=== PATIENT | female | born 1970 | race Caucasian/White ===

== ENCOUNTER 2016-05-31 18:33 | Emergency (ER) | payer MEDICAID ==
[~2016-05-31] VITALS: Ht 162.6 cm; Wt 71.0 kg
[~2016-05-31 18:33] MED LIST: ADVA250A INH; ALBU0.086 NEB; ALBU8I INH; FLOV220A INH; IBUP800T23 PO; LEVO.15 PO; MONT10TA2 PO; ROBA750T3 PO
[2016-05-31 18:51] VITALS: BP 130/90; PULSE 106; RESP 18; TEMP 99.5; O2SAT 95
[2016-05-31 19:14] VITALS: BP 130/90; PULSE 106; RESP 18; TEMP 99.5; O2SAT 95
--- NOTE | 2016-05-31 19:17 | PD ---
HPI Chief Complaint: lower abdominal pain Time Seen by Provider: 19:10 Travel History International Travel<30 days: No Contact w/Intl Traveler<30days: No Traveled to known affect area: No History of Present Illness HPI This 45-year-old female is complaining of lower abdominal pain. She says the pain started this morning and has been fairly persistent. No vomiting or diarrhea. She has a history of partial hysterectomy and has had her bladder tucked. She has not had any vaginal bleeding or discharge. She is currently on amoxicillin for dental problems [facility] Past Medical History Arthritis: Yes Asthma: Yes Autoimmune Disease: No Blood Disorders: No Bipolar Disorder: Yes (DENIES) Anxiety: Yes Depression: Yes Cancer: No Cardiovascular Problems: No COPD: No Diabetes: No Diminished Hearing: No Endocrine: No GERD: Yes Genitourinary: No Hepatitis: No Hiatal Hernia: No Immune Disorder: No Musculoskeletal: No Neurologic: No Psychiatric: Yes (BIPOLAR) Respiratory: Yes (ASTHMA) Immunizations Current: Yes Pneumonia: Yes Sleep Apnea: No Thyroid Disease: Yes Ulcer: No PNEUMOCCOCAL Vaccine (Year): 2 : 3 Para: 3 Past Surgical History Abdominal Surgery: No AICD: No Cardiac Surgery: No Ear Surgery: No Endocrine Surgery: No Eye Surgery: No Genitourinary Surgery: Yes (BLADDER LIFT) Gynecologic Surgery: No Hysterectomy: Yes (PARTIAL) Oral Surgery: No Pacemaker: No Thoracic Surgery: No Social History Alcohol Use: No (QUIT 2012) Tobacco Use: Yes (02/21) Substance Use: No (QUIT: OCT 2012) Allergies-Medications (Allergen,Severity, Reaction): Coded Allergies: [place] Nut (Verified Allergy, Severe, HIVES, THROAT SWELLS - ALL NUTS, 06/25) Nut Tree (Verified Allergy, Severe, HIVES - ALL NUTS, 06/26/15) White Fish (Verified Adverse Reaction, Severe, NAUSEA, 06/26/15) Reported Meds & Prescriptions Reported Meds & Active Scripts Active Robaxin-750 (Methocarbamol) 750 Mg Tab 750 Mg PO TID Ibuprofen 800 Mg Tab 800 Mg PO Q8HR Flovent Hfa (Fluticasone Propionate) 220 Mcg Aer 220 Mcg INH BID 30 Days Ventolin Hfa (Albuterol Sulfate) 8 Gm Aero 2 Puff INH Q4 PRN * SHAKE WELL BEFORE USE * Proventil Ud 0.083% (2.5 Mg/3 Ml) (Albuterol Sulfate) 2.5 Mg/3 Ml Inha 2.5 Mg NEB Q4HR NEB PRN Reported Singulair (Montelukast Sodium) 10 Mg Tab 10 Mg PO HS Advair Diskus 250/50 (Salmeterol Xinafoate/Fluticasone) 250 Mcg/50 Mcg Inhp 1 Puff INH BID Synthroid (Levothyroxine Sodium) 150 Mcg Tab 200 Mcg PO DAILY Review of Systems General / Constitutional: No: Fever, Chills Eyes: No: Diploplia, Blurred Vision HENT: No: Headaches, Vertigo Cardiovascular: No: Chest Pain or Discomfort, Palpitations Respiratory: No: Cough, Shortness of Breath Gastrointestinal: No: Nausea, Vomiting, Diarrhea Genitourinary: Positive: Pelvic Pain, No: Urgency, Frequency Musculoskeletal: No: Myalgias, Arthralgias Skin: No Rash, No Itching Hematologic/Lymphatic: No: Easy Bruising Physical Exam Narrative GENERAL: Well-developed female SKIN: Focused skin assessment warm/dry. HEAD: Atraumatic. Normocephalic. EYES: Pupils equal and round. No scleral icterus. No injection or drainage. ENT: No nasal bleeding or discharge. Mucous membranes pink and moist. NECK: Trachea midline. No JVD. CARDIOVASCULAR: Regular rate and rhythm. No murmur appreciated. RESPIRATORY: No accessory muscle use. Clear to auscultation. Breath sounds equal bilaterally. GASTROINTESTINAL: Abdomen soft, non-tender, nondistended. Hepatic and splenic margins not palpable. Lower abdominal tenderness without guarding or rigidity MUSCULOSKELETAL: No obvious deformities. No clubbing. No cyanosis. No edema. NEUROLOGICAL: Awake and alert. No obvious cranial nerve deficits. Motor grossly within normal limits. Normal speech. PSYCHIATRIC: Appropriate mood and affect; insight and judgment normal. Data Data Last Documented VS Vital Signs Date Time Temp Pulse Resp B/P Pulse Ox O2 Delivery O2 Flow Rate FiO2 05/31/16 19:18 18 05/31/16 19:18 102 117/89 96 Room Air 05/31/16 19:14 99.5 Orders Complete Blood Count With Diff (05/31/16 19:16) Comprehensive Metabolic Panel (05/31/16 19:16) Urinalysis - C+S If Indicated (05/31/16 19:16) Ct Abd/Pel W Iv Contrast(Rout) (05/31/16 20:19) Iohexol 350 Inj (Omnipaque 350 Inj) (05/31/16 20:45) Labs Laboratory Tests Test 05/31/16 19:45 White Blood Count 12.8 TH/MM3 Red Blood Count 4.53 MIL/MM3 Hemoglobin 12.7 GM/DL Hematocrit 38.1 % Mean Corpuscular Volume 84.1 FL Mean Corpuscular Hemoglobin 28.0 PG Mean Corpuscular Hemoglobin 33.3 % Concent Red Cell Distribution Width 12.9 % Platelet Count 237 TH/MM3 Mean Platelet Volume 9.1 FL Neutrophils (%) (Auto) 59.8 % Lymphocytes (%) (Auto) 28.6 % Monocytes (%) (Auto) 8.7 % Eosinophils (%) (Auto) 2.3 % Basophils (%) (Auto) 0.6 % Neutrophils # (Auto) 7.7 TH/MM3 Lymphocytes # (Auto) 3.6 TH/MM3 Monocytes # (Auto) 1.1 TH/MM3 Eosinophils # (Auto) 0.3 TH/MM3 Basophils # (Auto) 0.1 TH/MM3 CBC Comment DIFF FINAL Differential Comment Urine Color YELLOW Urine Turbidity CLEAR Urine pH 6.0 Urine Specific Combs 1.014 Urine Protein NEG mg/dL Urine Glucose (UA) NEG mg/dL Urine Ketones NEG mg/dL Urine Occult Blood NEG Urine Nitrite NEG Urine Bilirubin NEG Urine Leukocyte Esterase NEG Urine RBC 0-3 /hpf Urine Squamous Epithelial 0-5 /hpf Cells Urine Mucus OCC /lpf Microscopic Urinalysis Comment CULT NOT INDICATED Sodium Level 140 MEQ/L Potassium Level 3.5 MEQ/L Chloride Level 105 MEQ/L Carbon Dioxide Level 26.9 MEQ/L Anion Gap 8 MEQ/L Blood Urea Nitrogen 10 MG/DL Creatinine 0.49 MG/DL Estimat Glomerular Filtration 137 ML/MIN Rate Random Glucose 90 MG/DL Calcium Level 9.3 MG/DL Total Bilirubin 0.3 MG/DL Aspartate Amino Transf 11 U/L (AST/SGOT) Alanine Aminotransferase 25 U/L (ALT/SGPT) Alkaline Phosphatase 81 U/L Total Protein 7.1 GM/DL Albumin 3.4 GM/DL [facility] Medical Decision Making Medical Screen Exam Complete: Yes Emergency Medical Condition: Yes Medical Record Reviewed: Yes Differential Diagnosis Differential includes nonspecific abdominal pain, UTI, diverticulitis Narrative Course Urine is negative for infection. Her white count is 12,000. A CT scan has been ordered to assess for diverticulitis. CT scan is read as showing acute diverticulitis involving the sigmoid colon. Patient is here with her son and cannot be admitted at this time. She will be put on cipro and Flagyl. Diagnosis Primary Impression: Acute diverticulitis Scripts Hydrocodone-Acetaminophen (Lortab)10-325 Mg Tab1 Tab PO Q4H PRN (PAIN) #20 TAB Ref 0 Prov:Shane Benítez MD 05/31/16 Metronidazole (Flagyl)500 Mg [id number] Mg PO TID #21 TAB Ref 0 Prov:Shane Benítez MD 05/31/16 Ciprofloxacin (Cipro)500 Mg [id number] Mg PO BID #14 TAB Ref 0 Prov:Shane Benítez MD 05/31/16 Disposition: 01 DISCHARGE HOME Condition: Stable Shane Benítez MD May 31, 2016 19:17
[2016-05-31 19:18] VITALS: BP 117/89; PULSE 102; RESP 18; O2SAT 96
[2016-05-31 19:56] LABS: BLOOD, URINE NEG (NEG); GLUCOSE,URINE NEG (NEG); KETONE, URINE NEG (NEG); NITRITE,URINE NEG (NEG)
[2016-05-31 19:58] LABS: AUTOMATED NEUTROPHIL # 7.7 TH/MM3 (1.8-7.7); BASOPHIL # 0.1 TH/MM3 (0-0.2); BASOPHIL % 0.6 % (0.0-2.0); EOSINOPHIL # 0.3 TH/MM3 (0-0.4); EOSINOPHIL % 2.3 % (0.0-4.0); HEMATOCRIT 38.1 % (35.0-46.0); LYMPH % 28.6 % (9.0-44.0); LYMPHOCYTE # 3.6 TH/MM3 (1.0-4.8); MEAN CELL VOLUME 84.1 FL (80.0-100.0); MEAN CORPUSCULAR HGB CONC 33.3 % (32.0-36.0); MONO % 8.7 % (0.0-8.0); NEUT % 59.8 % (16.0-70.0); PLATELET COUNT 237 TH/MM3 (150-450); RED BLOOD COUNT 4.53 MIL/MM3 (4.00-5.30); RED CELL DISTRIBUTION WIDTH 12.9 % (11.6-17.2); WHITE BLOOD COUNT 12.8 TH/MM3 (4.0-11.0)
[2016-05-31 19:59] LABS: HEMO FLAGS DIFF FINAL
[2016-05-31 20:06] LABS: CHLORIDE 105 MEQ/L (98-107); POTASSIUM 3.5 MEQ/L (3.5-5.1); SODIUM (NA) 140 MEQ/L (136-145)
[2016-05-31 20:11] LABS: ANION GAP 8 MEQ/L (5-15); BICARBONATE 26.9 MEQ/L (21.0-32.0)
[2016-05-31 20:12] LABS: BLOOD UREA NITROGEN 10 MG/DL (7-18)
[2016-05-31 20:14] LABS: ALT (GPT) 25 U/L (10-53); URINE COLOR YELLOW (YELLW/STRAW)
[2016-05-31 20:15] LABS: AST (GOT) 11 U/L (15-37); GLOMERULAR FILTRATION RATE 137 ML/MIN (>89); MUCUS URINE OCC /lpf (OCC); SQUAMOUS EPITHELIAL CELL URINE 0-5 /hpf (0-5)
[2016-05-31 20:16] LABS: COMMENT (UR) CULT NOT INDICATED; CULTURE IF INDICATED CULT NOT INDICATED; RBC, URINE 0-3 /hpf (0-3); TOTAL BILIRUBIN ADULT 0.3 MG/DL (0.2-1.0)
[2016-05-31 20:17] LABS: ALKALINE PHOSPHATASE 81 U/L (45-117)
[2016-05-31] MEDS ORDERED: IOHEXOL 350 MG/ML 10 ML VIAL (for RAD DIAG) IV ONE (20:45)
--- NOTE | 2016-05-31 20:56 | RADHPO ---
EXAM DATE/TIME: 05/31/2016 20:28 [place] COMPARISON: No previous studies available for comparison. INDICATIONS : Bilateral lower abdominal pain. Evaluate for diverticulitis. IV CONTRAST: 100 cc Omnipaque 350 (iohexol) IV ORAL CONTRAST: No oral contrast ingested. RADIATION DOSE: 11.67 CTDIvol (mGy) MEDICAL HISTORY : None SURGICAL HISTORY : Hysterectomy. Bladder lift. ENCOUNTER: Initial ACUITY: 1 day PAIN SCALE: 10/10 LOCATION: Bilateral lower quadrant TECHNIQUE: Volumetric scanning of the abdomen and pelvis was performed. Using automated exposure control and ad justment of the mA and/or kV according to patient size, radiation dose was kept as low as reasonably achievable to obtain optimal diagnostic quality images. FINDINGS: LOWER LUNGS: The visualized lower lungs are clear. LIVER: Homogeneous density without lesion. There is no dilation of the biliary tree. No calcified gallston es. There is mild steatosis of the liver. SPLEEN: Normal size without lesion. PANCREAS: Within normal limits. KIDNEYS: Normal in size and shape. There is no mass, stone or hydronephrosis. ADRENAL GLANDS: Within normal limits. VASCULAR: There is no aortic aneurysm. BOWEL/MESENTERY: There is mild wall thickening and inflammatory change involving the sigmoid colon with multiple diver ticuli. There is no free air or fluid. ABDOMINAL WALL: Within normal limits. RETROPERITONEUM: There is no lymphadenopathy. BLADDER: No wall thickening or mass. REPRODUCTIVE: Within normal limits. INGUINAL: There is no lymphadenopathy or hernia. MUSCULOSKELETAL: Within normal limits for patient age. CONCLUSION: 1. Ings characteristic of mild acute diverticulitis involving the sigmoid colon. There is no free air or fluid. 2. Mild steatosis of the liver. Mack Robledo MD on May 31, 2016 at 20:53 Board Certified Radiologist. This report was verified electronically.
[2016-05-31] MEDS ORDERED: CIPR-9 PO (21:07)
[2016-05-31] MEDS ORDERED: METR-1 PO (21:07)
[2016-05-31] MEDS ORDERED: HYDR-3535 PO (21:07)
[2016-05-31 21:34] VITALS: BP 132/78
== END 2016-05-31 21:39 | disposition home or self-care (01) ==
LOC: PHED 18:33
DX: K57.32 Diverticulitis of large intestine without perforation or abscess without bleeding (principal); E07.9 Disorder of thyroid, unspecified; F17.200 Nicotine dependence, unspecified, uncomplicated; Z87.39 Personal history of other diseases of the musculoskeletal system and connective tissue; Z87.09 Personal history of other diseases of the respiratory system; Z86.59 Personal history of other mental and behavioral disorders; Z87.19 Personal history of other diseases of the digestive system
CPT/HCPCS: 74177; 80053; 81001; 85025; 99284; Q9967

== ENCOUNTER 2017-03-01 08:32 | Emergency (ER) | payer MEDICAID, OTHER ==
[~2017-03-01] VITALS: Ht 154.9 cm; Wt 73.4 kg
[~2017-03-01 08:32] MED LIST changes: +CIPR-9 PO; +HYDR-3535 PO; +METR-1 PO
[2017-03-01 08:41] VITALS: BP 131/79; PULSE 85; RESP 16; TEMP 97.9; O2SAT 97
[2017-03-01] MEDS ORDERED: CIPR-9 PO (08:58)
[2017-03-01] MEDS ORDERED: METR-1 PO (08:58)
--- NOTE | 2017-03-01 09:02 | PD ---
HPI Chief Complaint: Abdominal Pain Time Seen by Provider: 08:51 Travel History International Travel<30 days: No Contact w/Intl Traveler<30days: No Traveled to known affect area: No History of Present Illness HPI The patient was seen and examined in the presence of the nurse. This patient complains of left lower quadrant abdominal pain of some bloating. She's had diverticulitis multiple times and this feels the same. She is not having active vomiting or diarrhea or rectal bleeding. She's had colonoscopy several months ago. Symptoms are of mild to moderate severity. She requests to see if the antibiotics to get better and doesn't want a lot of testing because she says she knows what's going on. PFSH Past Medical History Arthritis: Yes Asthma: Yes Autoimmune Disease: No Blood Disorders: No Bipolar Disorder: Yes (DENIES) Anxiety: Yes Depression: Yes Cancer: No Cardiovascular Problems: No COPD: No Diabetes: No Diminished Hearing: No Endocrine: No GERD: Yes Genitourinary: No Hepatitis: No Hiatal Hernia: No Immune Disorder: No Musculoskeletal: No Neurologic: No Psychiatric: Yes (BIPOLAR) Respiratory: Yes (ASTHMA) Immunizations Current: Yes Pneumonia: Yes Sleep Apnea: No Thyroid Disease: Yes Ulcer: No PNEUMOCCOCAL Vaccine (Year): 2 : 3 Para: 3 Past Surgical History Abdominal Surgery: No AICD: No Cardiac Surgery: No Ear Surgery: No Endocrine Surgery: No Eye Surgery: No Genitourinary Surgery: Yes (BLADDER LIFT) Gynecologic Surgery: No Hysterectomy: Yes (2012) Oral Surgery: No Pacemaker: No Thoracic Surgery: No Other Surgery: Yes (Dental 05/2016) Social History Alcohol Use: No (QUIT 2012) Tobacco Use: Yes (02/21 PPD) Substance Use: No (QUIT: OCT 2012) Allergies-Medications (Allergen,Severity, Reaction): Coded Allergies: bertholletia excelsa (Unverified Allergy, Severe, HIVES, THROAT SWELLS - ALL NUTS, 10/04/16) tree nut (Unverified Allergy, Severe, HIVES - ALL NUTS, 10/04/16) Fish Containing Products (Unverified Adverse Reaction, Severe, NAUSEA, ) Reported Meds & Prescriptions Reported Meds & Active Scripts Active Flagyl (Metronidazole) 500 Mg Tab 500 Mg PO TID Cipro (Ciprofloxacin HCl) 500 Mg Tab 500 Mg PO BID Lortab (Hydrocodone-Acetaminophen) 10-325 Mg Tab 1 Tab PO Q4H PRN Robaxin-750 (Methocarbamol) 750 Mg Tab 750 Mg PO TID Ibuprofen 800 Mg Tab 800 Mg PO Q8HR Flovent Hfa (Fluticasone Propionate) 220 Mcg Aer 220 Mcg INH BID 30 Days Ventolin Hfa (Albuterol Sulfate) 8 Gm Aero 2 Puff INH Q4 PRN * SHAKE WELL BEFORE USE * Proventil Ud 0.083% (2.5 Mg/3 Ml) (Albuterol Sulfate) 2.5 Mg/3 Ml Inha 2.5 Mg NEB Q4HR NEB PRN Reported Singulair (Montelukast Sodium) 10 Mg Tab 10 Mg PO HS Advair Diskus 250/50 (Salmeterol Xinafoate/Fluticasone) 250 Mcg/50 Mcg Inhp 1 Puff INH BID Synthroid (Levothyroxine Sodium) 150 Mcg Tab 200 Mcg PO DAILY Review of Systems General / Constitutional: No: Fever HENT: No: Headaches Cardiovascular: No: Chest Pain or Discomfort Physical Exam Narrative GASTROINTESTINAL: Abdomen soft, mild left lower quadrant tenderness without rebound or guarding, nondistended. Positive bowel sounds. No hepato- splenomegaly, or palpable masses. No guarding. SKIN: Focused skin assessment reveals no rash or ulcers. Skin is warm and dry. Palpation shows no induration or nodules. Psych: Normal mood and affect. Normal insight and judgment. Data Data Last Documented VS Vital Signs Date Time Temp Pulse Resp B/P (MAP) Pulse Ox O2 Delivery O2 Flow Rate FiO2 03/01/17 08:41 97.9 85 16 131/79 (96) 97 Room Air Orders Orders Ed Urine Pregnancytest Poc (03/01/17 08:47) MDM Medical Decision Making Medical Screen Exam Complete: Yes Emergency Medical Condition: Yes Medical Record Reviewed: Yes Differential Diagnosis Diverticulitis, colitis, ileus Narrative Course I have reviewed the patient's electronic medical record. Patient's had diverticulitis diagnosed here before. She reports having a hysterectomy therefore did not order test I prescribed her Cipro and Flagyl. She's had these before and got better and tolerated them well Diagnosis Primary Impression: Acute diverticulitis Additional Instructions: The patient was advised to follow up with their physician and return if they worsen. Med/Other Pt SpecificInfo: Prescription(s) given Scripts Metronidazole (Flagyl) 500 Mg Tab 500 MG PO TID for Infection, #21 TAB 0 Refills Prov: Yosef Benitez MD 03/01/17 Ciprofloxacin (Cipro) 500 Mg Tab 500 MG PO BID for Infection, #14 TAB 0 Refills Prov: Yosef Benitez MD 03/01/17 Disposition: 01 DISCHARGE HOME Condition: Stable Yosef Benitez MD Mar 01, 2017 09:02
[2017-03-01] MEDS ORDERED: VENTAER INH (09:06)
[2017-03-01] MEDS ORDERED: HYDR-3583 PO (09:06)
[2017-03-01] MEDS ORDERED: MONT10TA2 PO (09:06)
[2017-03-01] MEDS ORDERED: ALBU0.08 NEB (09:06)
[2017-03-01] MEDS ORDERED: LEVO200T4 PO (09:06)
== END 2017-03-01 09:12 | disposition home or self-care (01) ==
LOC: PHED 08:32
DX: K57.92 Diverticulitis of intestine, part unspecified, without perforation or abscess without bleeding (principal); J45.909 Unspecified asthma, uncomplicated; F41.9 Anxiety disorder, unspecified; F32.9 Major depressive disorder, single episode, unspecified; K21.9 Gastro-esophageal reflux disease without esophagitis; M19.90 Unspecified osteoarthritis, unspecified site; F17.210 Nicotine dependence, cigarettes, uncomplicated; Z79.899 Other long term (current) drug therapy
CPT/HCPCS: 99284

== ENCOUNTER 2017-03-13 08:34 | Emergency (ER) | payer OTHER ==
[~2017-03-13] VITALS: Ht 154.9 cm; Wt 72.0 kg
[~2017-03-13 08:34] MED LIST changes: -ADVA250A INH; +ALBU0.08 NEB; -ALBU0.086 NEB; -ALBU8I INH; -FLOV220A INH; -HYDR-3535 PO; +HYDR-3583 PO; -IBUP800T23 PO; -LEVO.15 PO; +LEVO200T4 PO; -ROBA750T3 PO; +VENTAER INH
[2017-03-13 08:41] VITALS: BP 115/76; PULSE 80; RESP 16; TEMP 97.7; O2SAT 98
[2017-03-13] MEDS ORDERED: IBUP1TAB7 PO (09:22)
--- NOTE | 2017-03-13 09:22 | PD ---
HPI Chief Complaint: Pain: Acute or Chronic Time Seen by Provider: 09:06 Travel History International Travel<30 days: No Contact w/Intl Traveler<30days: No Traveled to known affect area: No History of Present Illness HPI This is a 46-year-old female here with left foot pain times one day. She denies injury or trauma. Pain is localized to the plantar aspect near the heel. Denies fever or chills. No swelling of the foot. No change in sensation of the foot. Weightbearing produces pain which is slightly relieved with rest. Symptom severity mild. PFSH Past Medical History Hx Anticoagulant Therapy: No Arthritis: Yes Asthma: Yes Autoimmune Disease: No Blood Disorders: No Bipolar Disorder: Yes (DENIES) Anxiety: Yes Depression: Yes Cancer: No Cardiovascular Problems: No COPD: No Diabetes: No Diminished Hearing: No Endocrine: No Gastrointestinal Disorders: No GERD: Yes Genitourinary: No Hepatitis: No Hiatal Hernia: No Immune Disorder: No Musculoskeletal: No Neurologic: No Psychiatric: Yes (BIPOLAR) Reproductive: No Respiratory: Yes (ASTHMA) Immunizations Current: Yes Pneumonia: Yes Sleep Apnea: No Thyroid Disease: Yes Ulcer: No PNEUMOCCOCAL Vaccine (Year): 2 ?: Not : 3 Para: 3 Past Surgical History Abdominal Surgery: No AICD: No Cardiac Surgery: No Ear Surgery: No Endocrine Surgery: No Eye Surgery: No Genitourinary Surgery: Yes (BLADDER LIFT) Gynecologic Surgery: No Hysterectomy: Yes (PARTIAL) Neurologic Surgery: No Oral Surgery: No Pacemaker: No Thoracic Surgery: No Other Surgery: Yes (Dental 05/2016) Social History Alcohol Use: No (QUIT 2012) Tobacco Use: Yes (02/23 PPD) Substance Use: No (QUIT: OCT 2012) Allergies-Medications (Allergen,Severity, Reaction): Coded Allergies: bertholletia excelsa (Unverified Allergy, Severe, HIVES, THROAT SWELLS - ALL NUTS, 03/13/17) tree nut (Unverified Allergy, Severe, HIVES - ALL NUTS, 03/13/17) Fish Containing Products (Unverified Adverse Reaction, Severe, NAUSEA, ) Reported Meds & Prescriptions Reported Meds & Active Scripts Active Ibuprofen 800 Mg Tab 800 Mg PO Q6HR PRN Flagyl (Metronidazole) 500 Mg Tab 500 Mg PO TID Cipro (Ciprofloxacin HCl) 500 Mg Tab 500 Mg PO BID Reported Hydrocodone-Acetaminophen 10-325 mg Tab 1 Tab PO Q6H PRN Levothyroxine (Levothyroxine Sodium) 200 Mcg Tab 200 Mcg PO DAILY Albuterol Neb (Albuterol Sulfate) 2.5 Mg/3 Ml Neb 2.5 Mg NEB Q4HR NEB While awake Singulair (Montelukast Sodium) 10 Mg Tab 10 Mg PO HS Ventolin Hfa 18 GM Inh (Albuterol Sulfate) 90 Mcg/Act Aer 2 Puff INH Q4-6H PRN Review of Systems Except as stated in HPI: all other systems reviewed are Neg General / Constitutional: No: Fever Physical Exam Narrative GENERAL: Alert and well-appearing female. SKIN: Warm and dry. No open wounds or lesions. HEAD: Normocephalic. EYES: No injection or drainage. NECK: Supple, trachea midline. MUSCULOSKELETAL: No cyanosis, or edema. Left foot: No swelling. No erythema. Bones are nontender. Patient has pain in the soft tissue of the heel. No evidence of puncture wound or infection. Normal sensation. 2+ dorsal pedis pulses. Brisk cap refill. Data Data Last Documented VS Vital Signs Date Time Temp Pulse Resp B/P (MAP) Pulse Ox O2 Delivery O2 Flow Rate FiO2 03/13/17 08:41 97.7 80 16 115/76 (89) 98 MDM Medical Decision Making Medical Screen Exam Complete: Yes Emergency Medical Condition: Yes Differential Diagnosis Plantar fasciitis, gallops, midfoot sprain Narrative Course 46-year-old female here with nontraumatic foot pain. This is consistent with plantar fasciitis hands. Patient will be prescribed NSAIDs. Diagnosis Primary Impression: Foot pain Qualified Codes: M79.672 - Pain in left foot Referrals: Primary Care Physician Additional Instructions: Ibuprofen 800 mg every 6 hours as needed for pain. Elevate the foot. Scripts Ibuprofen (Ibuprofen) 800 Mg Tab 800 MG PO Q6HR Y for PAIN, #40 TAB 0 Refills Prov: Kelsi Anand 03/13/17 Disposition: 01 DISCHARGE HOME Condition: Stable Kelsi Anand Mar 13, 2017 09:22
== END 2017-03-13 09:32 | disposition home or self-care (01) ==
LOC: PHEFT 08:34
DX: M79.672 Pain in left foot (principal); J45.909 Unspecified asthma, uncomplicated; Z72.0 Tobacco use
CPT/HCPCS: 99283

== ENCOUNTER 2017-04-07 11:24 | Emergency (ER) | payer MEDICAID, OTHER ==
[~2017-04-07] VITALS: Ht 154.9 cm; Wt 72.2 kg
[~2017-04-07 11:24] MED LIST changes: +IBUP1TAB7 PO
[2017-04-07 11:38] VITALS: BP 104/72; PULSE 79; RESP 16; TEMP 97.7; O2SAT 98
[2017-04-07] MEDS ORDERED: METR-1 PO (12:00)
[2017-04-07] MEDS ORDERED: CIPR-9 PO (12:00)
--- NOTE | 2017-04-07 12:00 | PD ---
HPI Chief Complaint: GI Complaint Time Seen by Provider: 11:47 Travel History International Travel<30 days: No Contact w/Intl Traveler<30days: No Traveled to known affect area: No History of Present Illness HPI 46-year-old female complains of lower abdominal pain since this morning. She has a history of diverticulitis and believes it might be the same. Diarrhea is also reported. Diarrhea is nonbloody. She reports strict compliance with diverticulitis/low residue diet. She reports weight loss intentionally. No fever. No vomiting. Onset gradual. Timing constant. Severity mild-to- moderate. She reports typically antibiotics are helpful. Lortab which normally works is less effective. PFSH Past Medical History Hx Anticoagulant Therapy: No Arthritis: Yes Asthma: Yes Autoimmune Disease: No Blood Disorders: No Bipolar Disorder: Yes (DENIES) Anxiety: Yes Depression: Yes Cancer: No Cardiovascular Problems: No COPD: No Diabetes: No Diminished Hearing: No Endocrine: No Gastrointestinal Disorders: No GERD: Yes Genitourinary: No Hepatitis: No Hiatal Hernia: No Immune Disorder: No Musculoskeletal: No Neurologic: No Psychiatric: Yes (BIPOLAR) Reproductive: No Respiratory: Yes (ASTHMA) Immunizations Current: Yes Pneumonia: Yes Sleep Apnea: No Thyroid Disease: Yes Ulcer: No PNEUMOCCOCAL Vaccine (Year): 2 ?: Not : 3 Para: 3 Past Surgical History Abdominal Surgery: No AICD: No Cardiac Surgery: No Ear Surgery: No Endocrine Surgery: No Eye Surgery: No Genitourinary Surgery: Yes (BLADDER LIFT) Gynecologic Surgery: No Hysterectomy: Yes (PARTIAL) Neurologic Surgery: No Oral Surgery: No Pacemaker: No Thoracic Surgery: No Other Surgery: Yes (Dental 05/2016) Social History Alcohol Use: No (QUIT 2012) Tobacco Use: Yes (02/23) Substance Use: No (QUIT: OCT 2012) Allergies-Medications (Allergen,Severity, Reaction): Coded Allergies: bertholletia excelsa (Unverified Allergy, Severe, HIVES, THROAT SWELLS - ALL NUTS, 04/07/17) tree nut (Unverified Allergy, Severe, HIVES - ALL NUTS, 04/07/17) Fish Containing Products (Unverified Adverse Reaction, Severe, NAUSEA, ) Reported Meds & Prescriptions Reported Meds & Active Scripts Active Ibuprofen 800 Mg Tab 800 Mg PO Q6HR PRN Flagyl (Metronidazole) 500 Mg Tab 500 Mg PO TID Cipro (Ciprofloxacin HCl) 500 Mg Tab 500 Mg PO BID Reported Hydrocodone-Acetaminophen 10-325 mg Tab 1 Tab PO Q6H PRN Levothyroxine (Levothyroxine Sodium) 200 Mcg Tab 200 Mcg PO DAILY Albuterol Neb (Albuterol Sulfate) 2.5 Mg/3 Ml Neb 2.5 Mg NEB Q4HR NEB While awake Singulair (Montelukast Sodium) 10 Mg Tab 10 Mg PO HS Ventolin Hfa 18 GM Inh (Albuterol Sulfate) 90 Mcg/Act Aer 2 Puff INH Q4-6H PRN Review of Systems Except as stated in HPI: all other systems reviewed are Neg Physical Exam Narrative GENERAL: 46-year-old female pleasant well-nourished well-developed Vital Signs Date Time Temp Pulse Resp B/P (MAP) Pulse Ox O2 Delivery O2 Flow Rate FiO2 04/07/17 11:38 97.7 79 16 104/72 (83) 98 SKIN: Warm and dry. HEAD: Atraumatic. Normocephalic. EYES: Pupils equal and round. No scleral icterus. No injection or drainage. ENT: No nasal bleeding or discharge. Mucous membranes pink and moist. NECK: Trachea midline. No JVD. CARDIOVASCULAR: Regular rate and rhythm. RESPIRATORY: No accessory muscle use. Clear to auscultation. Breath sounds equal bilaterally. GASTROINTESTINAL: Soft. Minimal tenderness to deep palpation in suprapubic abdomen and left lower quadrant. MUSCULOSKELETAL: Extremities without clubbing, cyanosis, or edema. No obvious deformities. NEUROLOGICAL: Awake and alert. No obvious cranial nerve deficits. Motor grossly within normal limits. Five out of 5 muscle strength in the arms and legs. Normal speech. PSYCHIATRIC: Appropriate mood and affect; insight and judgment normal. Data Data Last Documented VS Vital Signs Date Time Temp Pulse Resp B/P (MAP) Pulse Ox O2 Delivery O2 Flow Rate FiO2 04/07/17 11:38 97.7 79 16 104/72 (83) 98 MDM Medical Decision Making Medical Screen Exam Complete: Yes Emergency Medical Condition: Yes Medical Record Reviewed: Yes Differential Diagnosis Constipation, Gastritis, Acute Cholecystitis, Biliary Colic, Pancreatitis, VALVERDE , Hepatitis, Bowel Obstruction, Cystitis, Mesenteric Ischemia, AAA, Appendicitis , Renal Stone/Hydronephrosis, GERD, perforated viscous Narrative Course The abdomen is sufficiently benign to defer workup and imaging. Work note given the patient's request. Antibiotics are considered reasonable. Diagnosis Primary Impression: Acute diverticulitis Referrals: Primary Care Physician 2 days Med/Other Pt SpecificInfo: Prescription(s) given Scripts Metronidazole (Flagyl) 500 Mg Tab 500 MG PO TID for Infection for 14 Days, TAB 0 Refills Prov: Jacob Nelson MD 04/07/17 Ciprofloxacin (Cipro) 500 Mg Tab 500 MG PO BID for Infection for 14 Days, #28 TAB 0 Refills Prov: Jacob Nelson MD 04/07/17 Disposition: 01 DISCHARGE HOME Condition: Fair Jacob Nelson MD Apr 07, 2017 12:00
== END 2017-04-07 12:22 | disposition home or self-care (01) ==
LOC: PHED 11:24
DX: K57.92 Diverticulitis of intestine, part unspecified, without perforation or abscess without bleeding (principal); E07.9 Disorder of thyroid, unspecified; J45.909 Unspecified asthma, uncomplicated; F17.200 Nicotine dependence, unspecified, uncomplicated
CPT/HCPCS: 99283

== ENCOUNTER 2017-05-21 13:36 | Emergency (ER) | payer MEDICAID ==
[~2017-05-21] VITALS: Ht 154.9 cm; Wt 72.5 kg
[2017-05-21 13:41] VITALS: BP 132/71; PULSE 80; RESP 16; TEMP 97.7; O2SAT 97
[2017-05-21] MEDS ORDERED: SODIUM CHLORIDE 0.9% FLUSH 10 ML FLUSH IV FLUSH PRN (14:00)
--- NOTE | 2017-05-21 14:14 | PD ---
HPI Chief Complaint: Abdominal Pain Time Seen by Provider: 13:46 Travel History International Travel<30 days: No Contact w/Intl Traveler<30days: No Traveled to known affect area: No History of Present Illness HPI Patient is a 46-year-old female who presents the emergency room with complaints of lower abdominal pain. Patient reports that for the past 2 days, she has had increased lower abdominal pain which she rates as mild to moderate, reports the pain is similar to when she was diagnosed with acute diverticulitis in the past. Patient reports that whenever she has these symptoms, she is given a prescription for antibiotics which seem to resolve her symptoms. 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 Patient denies any fever chills, denies any nausea or vomiting, denies any constipation or diarrhea. Patient denies any vaginal discharge or bleeding. Patient with no other complaints at this time. PFSH Past Medical History Hx Anticoagulant Therapy: No Arthritis: Yes Asthma: Yes Autoimmune Disease: No Blood Disorders: No Bipolar Disorder: Yes (DENIES) Anxiety: Yes Depression: Yes Cancer: No Cardiovascular Problems: No COPD: No Diabetes: No Diminished Hearing: No Diverticulitis: Yes Endocrine: No Gastrointestinal Disorders: No GERD: Yes Genitourinary: No Hepatitis: No Hiatal Hernia: No Immune Disorder: No Musculoskeletal: No Neurologic: No Psychiatric: Yes (BIPOLAR) Reproductive: No Respiratory: Yes (ASTHMA) Immunizations Current: Yes Pneumonia: Yes Sleep Apnea: No Thyroid Disease: Yes Ulcer: No Influenza Vaccination: No PNEUMOCCOCAL Vaccine (Year): 2 ?: Not : 3 Para: 3 Past Surgical History Abdominal Surgery: No AICD: No Cardiac Surgery: No Ear Surgery: No Endocrine Surgery: No Eye Surgery: No Genitourinary Surgery: Yes (BLADDER LIFT) Gynecologic Surgery: No Hysterectomy: Yes (PARTIAL) Neurologic Surgery: No Oral Surgery: No Pacemaker: No Thoracic Surgery: No Other Surgery: Yes (Dental 05/2016) Social History Alcohol Use: No (QUIT 2012) Tobacco Use: Yes (3 CIGARETTES DAILY) Substance Use: No (QUIT: OCT 2012) Allergies-Medications (Allergen,Severity, Reaction): Coded Allergies: bertholletia excelsa (Unverified Allergy, Severe, HIVES, THROAT SWELLS - ALL NUTS, 05/21/17) tree nut (Unverified Allergy, Severe, HIVES - ALL NUTS, 05/21/17) Fish Containing Products (Unverified Adverse Reaction, Severe, NAUSEA, 05/21) Reported Meds & Prescriptions Reported Meds & Active Scripts Active Ibuprofen 800 Mg Tab 800 Mg PO Q6HR PRN Reported Hydrocodone-Acetaminophen 10-325 mg Tab 1 Tab PO Q6H PRN Levothyroxine (Levothyroxine Sodium) 200 Mcg Tab 200 Mcg PO DAILY Albuterol Neb (Albuterol Sulfate) 2.5 Mg/3 Ml Neb 2.5 Mg NEB Q4HR NEB While awake Singulair (Montelukast Sodium) 10 Mg Tab 10 Mg PO HS Ventolin Hfa 18 GM Inh (Albuterol Sulfate) 90 Mcg/Act Aer 2 Puff INH Q4-6H PRN Review of Systems General / Constitutional: No: Fever Eyes: No: Visual changes HENT: No: Headaches Cardiovascular: No: Chest Pain or Discomfort Respiratory: No: Shortness of Breath Gastrointestinal: Positive: Abdominal Pain, No: Nausea, Vomiting, Diarrhea, Constipation Genitourinary: No: Dysuria Musculoskeletal: No: Pain Skin: No Rash Neurologic: No: Weakness Psychiatric: No: Depression Endocrine: No: Polydipsia Hematologic/Lymphatic: No: Easy Bruising Physical Exam Narrative GENERAL: Mild distress SKIN: Focused skin assessment warm/dry. HEAD: Atraumatic. Normocephalic. EYES: Pupils equal and round. No scleral icterus. No injection or drainage. ENT: No nasal bleeding or discharge. Mucous membranes pink and moist. NECK: Trachea midline. No JVD. CARDIOVASCULAR: Regular rate and rhythm. No murmur appreciated. RESPIRATORY: No accessory muscle use. Clear to auscultation. Breath sounds equal bilaterally. GASTROINTESTINAL: Abdomen soft, mildly tender to the lower abdomen, nondistended. Hepatic and splenic margins not palpable. MUSCULOSKELETAL: No obvious deformities. No clubbing. No cyanosis. No edema. NEUROLOGICAL: Awake and alert. No obvious cranial nerve deficits. Motor grossly within normal limits. Normal speech. PSYCHIATRIC: Appropriate mood and affect; insight and judgment normal. Data Data Last Documented VS Vital Signs Date Time Temp Pulse Resp B/P (MAP) Pulse Ox O2 Delivery O2 Flow Rate FiO2 05/21/17 13:41 97.7 80 16 132/71 (91) 97 Orders Orders Complete Blood Count With Diff (05/21/17 13:49) Comprehensive Metabolic Panel (05/21/17 13:49) Iv Access Insert/Monitor (05/21/17 13:49) Sodium Chloride 0.9% Flush (Ns Flush) (05/21/17 14:00) Ct Abd/Pel W/O Iv Contrast (05/21/17 14:08) Sodium Chlor 0.9% 1000 Ml Inj (Ns 1000 M (05/21/17 14:15) Urinalysis - C+S If Indicated (05/21/17 15:35) Labs Laboratory Tests Test 05/21/17 14:19 White Blood Count 9.2 TH/MM3 Red Blood Count 5.27 MIL/MM3 Hemoglobin 14.5 GM/DL Hematocrit 44.0 % Mean Corpuscular Volume 83.4 FL Mean Corpuscular Hemoglobin 27.5 PG Mean Corpuscular Hemoglobin Concent 33.0 % Red Cell Distribution Width 14.1 % Platelet Count 312 TH/MM3 Mean Platelet Volume 9.1 FL Neutrophils (%) (Auto) 35.9 % Lymphocytes (%) (Auto) 51.2 % Monocytes (%) (Auto) 7.7 % Eosinophils (%) (Auto) 4.7 % Basophils (%) (Auto) 0.5 % Neutrophils # (Auto) 3.3 TH/MM3 Lymphocytes # (Auto) 4.8 TH/MM3 Monocytes # (Auto) 0.7 TH/MM3 Eosinophils # (Auto) 0.4 TH/MM3 Basophils # (Auto) 0.0 TH/MM3 CBC Comment DIFF FINAL Differential Comment Blood Urea Nitrogen 13 MG/DL Creatinine 0.61 MG/DL Random Glucose 87 MG/DL Total Protein 7.5 GM/DL Albumin 3.8 GM/DL Calcium Level 9.3 MG/DL Alkaline Phosphatase 93 U/L Aspartate Amino Transf (AST/SGOT) 16 U/L Alanine Aminotransferase (ALT/SGPT) 22 U/L Total Bilirubin 0.3 MG/DL Sodium Level 138 MEQ/L Potassium Level 3.8 MEQ/L Chloride Level 105 MEQ/L Carbon Dioxide Level 26.8 MEQ/L Anion Gap 6 MEQ/L Estimat Glomerular Filtration Rate 106 ML/MIN MDM Medical Decision Making Medical Screen Exam Complete: Yes Emergency Medical Condition: Yes Medical Record Reviewed: Yes Interpretation(s) Vital Signs Date Time Temp Pulse Resp B/P (MAP) Pulse Ox O2 Delivery O2 Flow Rate FiO2 05/21/17 13:41 97.7 80 16 132/71 (91 97 Differential Diagnosis Diverticulitis, gastritis, gastroenteritis Narrative Course 46-year-old female who presents to emergency room with complaints of lower abdominal pain, patient reports her symptoms are similar to when she was diagnosed with acute diverticulitis in the past. Onset of symptoms has been 2 days, pain is mild to moderate in nature. During the course of the patients emergency department visit, the patients history, examination, and differential diagnosis were reviewed with the patient. 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 The patient had an IV access obtained and blood work sent for analysis. The patient was initially provided IV fluids. The patients laboratory studies were reviewed and remarkable for: Laboratory Tests Test 05/21/17 14:19 White Blood Count 9.2 TH/MM3 (4.0-11.0) Red Blood Count 5.27 MIL/MM3 (4.00-5.30) Hemoglobin 14.5 GM/DL (11.6-15.3) Hematocrit 44.0 % (35.0-46.0) Mean Corpuscular Volume 83.4 FL (80.0-100.0) Mean Corpuscular Hemoglobin 27.5 PG (27.0-34.0) Mean Corpuscular Hemoglobin Concent 33.0 % (32.0-36.0) Red Cell Distribution Width 14.1 % (11.6-17.2) Platelet Count 312 TH/MM3 (150-450) Mean Platelet Volume 9.1 FL (7.0-11.0) Neutrophils (%) (Auto) 35.9 % (16.0-70.0) Lymphocytes (%) (Auto) 51.2 % (9.0-44.0) Monocytes (%) (Auto) 7.7 % (0.0-8.0) Eosinophils (%) (Auto) 4.7 % (0.0-4.0) Basophils (%) (Auto) 0.5 % (0.0-2.0) Neutrophils # (Auto) 3.3 TH/MM3 (1.8-7.7) Lymphocytes # (Auto) 4.8 TH/MM3 (1.0-4.8) Monocytes # (Auto) 0.7 TH/MM3 (0-0.9) Eosinophils # (Auto) 0.4 TH/MM3 (0-0.4) Basophils # (Auto) 0.0 TH/MM3 (0-0.2) CBC Comment DIFF FINAL Differential Comment Blood Urea Nitrogen 13 MG/DL (7-18) Creatinine 0.61 MG/DL (0.50-1.00) Random Glucose 87 MG/DL (74-106) Total Protein 7.5 GM/DL (6.4-8.2) Albumin 3.8 GM/DL (3.4-5.0) Calcium Level 9.3 MG/DL (8.5-10.1) Alkaline Phosphatase 93 U/L (45-117) Aspartate Amino Transf (AST/SGOT) 16 U/L (15-37) Alanine Aminotransferase (ALT/SGPT) 22 U/L (10-53) Total Bilirubin 0.3 MG/DL (0.2-1.0) Sodium Level 138 MEQ/L (136-145) Potassium Level 3.8 MEQ/L (3.5-5.1) Chloride Level 105 MEQ/L (98-107) Carbon Dioxide Level 26.8 MEQ/L (21.0-32.0) Anion Gap 6 MEQ/L (5-15) Estimat Glomerular Filtration Rate 106 ML/MIN (>89) Radiology studies were reviewed and remarkable for: Last Impressions Abdomen/Pelvis CT 05/21/17 5128 Signed Impressions: Service Date/Time: Sunday, May 21, 2017 14:43 - CONCLUSION: 1. Uncomplicated sigmoid diverticulosis. 2. No evidence of obstructive uropathy or acute inflammatory disease. 3. Status post hysterectomy. José Miguel Cates MD Patient with sigmoid diverticulosis with no signs of inflammatory disease. 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 She will call UA result. Patient does not wish for further workup for etiology of abdominal pain and request to be discharged at this time with a work note to be off work tomorrow. Signs and symptoms of when to return to the emergency room was reviewed patient in detail. pt's cell: [phone] Diagnosis Primary Impression: Abdominal pain Qualified Codes: R10.30 - Lower abdominal pain, unspecified Patient Instructions: General Instructions Departure Forms: Tests/Procedures, Work Release Enter return to work date: May 23, 2017 Additional Instructions: Please provide patient with a copy of their lab work and studies at discharge* * Please follow up with your primary care doctor in 2-3 days Return to the ER if symptoms worsen or progress Return to the ER as needed Please follow-up with your urinalysis from today Disposition: 01 DISCHARGE HOME Condition: Stable Janee Nichols DO May 21, 2017 14:14
[2017-05-21] MEDS ORDERED: SODIUM CHLOR 0.9% 1000 ML INJ 1,000 ML IV ONE (14:15)
[2017-05-21 14:41] LABS: AUTOMATED NEUTROPHIL # 3.3 TH/MM3 (1.8-7.7); BASOPHIL % 0.5 % (0.0-2.0); EOSINOPHIL # 0.4 TH/MM3 (0-0.4); EOSINOPHIL % 4.7 % (0.0-4.0); HEMOGLOBIN 14.5 GM/DL (11.6-15.3); LYMPH % 51.2 % (9.0-44.0); LYMPHOCYTE # 4.8 TH/MM3 (1.0-4.8); MEAN CELL VOLUME 83.4 FL (80.0-100.0); MEAN CORPUSCULAR HEMOGLOBIN 27.5 PG (27.0-34.0); MEAN PLATELET VOLUME 9.1 FL (7.0-11.0); MONO % 7.7 % (0.0-8.0); MONOCYTE # 0.7 TH/MM3 (0-0.9); NEUT % 35.9 % (16.0-70.0); PLATELET COUNT 312 TH/MM3 (150-450); RED BLOOD COUNT 5.27 MIL/MM3 (4.00-5.30); RED CELL DISTRIBUTION WIDTH 14.1 % (11.6-17.2); WHITE BLOOD COUNT 9.2 TH/MM3 (4.0-11.0)
[2017-05-21 14:47] LABS: CHLORIDE 105 MEQ/L (98-107); SODIUM (NA) 138 MEQ/L (136-145)
[2017-05-21 14:50] LABS: CALCIUM 9.3 MG/DL (8.5-10.1)
[2017-05-21 14:51] LABS: ALBUMIN 3.8 GM/DL (3.4-5.0); BICARBONATE 26.8 MEQ/L (21.0-32.0); BLOOD UREA NITROGEN 13 MG/DL (7-18); GLUCOSE,RANDOM 87 MG/DL (74-106)
[2017-05-21 14:54] LABS: ALT (GPT) 22 U/L (10-53); AST (GOT) 16 U/L (15-37); CREATININE 0.61 MG/DL (0.50-1.00); GLOMERULAR FILTRATION RATE 106 ML/MIN (>89)
[2017-05-21 14:56] LABS: TOTAL BILIRUBIN ADULT 0.3 MG/DL (0.2-1.0); TOTAL PROTEIN 7.5 GM/DL (6.4-8.2)
[2017-05-21 14:57] LABS: ALKALINE PHOSPHATASE 93 U/L (45-117)
--- NOTE | 2017-05-21 15:17 | RADRPT ---
EXAM DATE/TIME: 05/21/2017 14:43 [facility] COMPARISON: No previous studies available for comparison. INDICATIONS : Lower abdominal pain. ORAL CONTRAST: No oral contrast ingested. RADIATION DOSE: 17.31 CTDIvol (mGy) MEDICAL HISTORY : Diverticulitis. Gastroesophageal reflux disease. SURGICAL HISTORY : Hysterectomy. Bladder tuck. ENCOUNTER: Initial ACUITY: 3 days PAIN SCALE: 6/10 LOCATION: Bilateral lower quadrant TECHNIQUE: Volumetric scanning of the abdomen and pelvis was performed. Using automated exposure control and ad justment of the mA and/or kV according to patient size, radiation dose was kept as low as reasonably achievable to obtain optimal diagnostic quality images. DICOM format image data is available electro nically for review and comparison. FINDINGS: LOWER LUNGS: The visualized lower lungs are clear. LIVER: Homogeneous density without lesion. There is no dilation of the biliary tree. No calcified gallston es. SPLEEN: Normal size without lesion. PANCREAS: Within normal limits. KIDNEYS: Normal in size and shape. There is no mass, stone, or hydronephrosis. ADRENAL GLANDS: Within normal limits. VASCULAR: There is no aortic aneurysm. BOWEL/MESENTERY: Multiple diverticula are seen along the sigmoid colon. There are no active pericolonic inflammatory c hanges. The stomach, small bowel, and colon demonstrate no acute abnormality. There is no free intra peritoneal air or fluid. ABDOMINAL WALL: Within normal limits. RETROPERITONEUM: There is no lymphadenopathy. BLADDER: No wall thickening or mass. REPRODUCTIVE: Within normal limits. INGUINAL: There is no lymphadenopathy or hernia. MUSCULOSKELETAL: Within normal limits for patient age. CONCLUSION: 1. Uncomplicated sigmoid diverticulosis. 2. No evidence of obstructive uropathy or acute inflammatory disease. 3. Status post hysterectomy. José Miguel aCtes MD on May 21, 2017 at 15:12 Board Certified Radiologist. This report was verified electronically.
[2017-05-21 16:00] LABS: BILIRUBIN, URINE NEG (NEG); BLOOD, URINE NEG (NEG); GLUCOSE,URINE NEG (NEG); KETONE, URINE NEG (NEG); NITRITE,URINE NEG (NEG); URINE LEUKOCYTE ESTERASE NEG (NEG)
[2017-05-21 16:02] LABS: URINE COLOR STRAW (YELLW/STRAW)
[2017-05-21 16:04] LABS: AMORPHOUS SEDIMENT, URINE FEW; SQUAMOUS EPITHELIAL CELL URINE 0-5 /hpf (0-5)
== END 2017-05-21 16:34 | disposition home or self-care (01) ==
LOC: PHED 13:36
DX: K57.30 Diverticulosis of large intestine without perforation or abscess without bleeding (principal); M19.90 Unspecified osteoarthritis, unspecified site; J45.909 Unspecified asthma, uncomplicated; K21.9 Gastro-esophageal reflux disease without esophagitis; F31.9 Bipolar disorder, unspecified; E07.9 Disorder of thyroid, unspecified; F17.210 Nicotine dependence, cigarettes, uncomplicated; Z79.51 Long term (current) use of inhaled steroids; Z79.899 Other long term (current) drug therapy
CPT/HCPCS: 74176; 80053; 81001; 85025; 96360; 99284; J7030